=== PATIENT | female | born 1945 | race Caucasian/White ===

== ENCOUNTER → 2016-11-14 | Day surgery (SDC) | payer OTHER, MEDICARE ==
[~2016-11-14] VITALS: Ht 165.1 cm; Wt 56.7 kg
--- NOTE | 2016-11-14 13:44 | Operative Report ---
Operative/Inv Procedure Report Surgery Date: 11/14/16 Name of Procedure: Cataract extraction lens implantation left eye Pre-Operative Diagnosis: Age-related cataract left eye 20/40 vision 20/400 glare vision Post-Operative Diagnosis: Same Estimated Blood Loss: none Surgeon/Neurodiagnostic Technician: CRISTAL PEREZ,VALENTINA Haley Anesthesia: local monitored anesthesi Complications: None Operative/Procedure Note Note: The patient was brought to the operating room standard monitoring equipment was attached the patient was prepped and draped in the usual fashion for intraocular surgery. A lid speculum was placed to retract the lids. The case was begun by making 2 partial-thickness corneal relaxing incisions at 115. A temporal incision with a 2.4 mm keratome. The eye was stabilized with a Noguera ring during this incision. 1 mL of non-preserved lidocaine was introduced into the anterior chamber to provide anesthesia. The anterior chamber was then filled and deepened with viscoelastic. A curvilinear capsulorrhexis was achieved using a 30-gauge needle and is a cystotome and capsulorrhexis was finished using a Utrata forceps. A second or paracentesis incision was made temporally with a 1 mm MVR blade. The lens was then hydrodissected with balanced salt solution and found to be rotatable. The lens was emulsified using phacoemulsification and a modified four-quadrant cracking technique. The residual cortical material was removed using automated irrigation and aspiration and as much of the anterior capsular rim was cleaned as well as possible. The posterior capsule was cleaned first with the automated machine on a low setting and then manually with a Kartik squeegee. The capsular bag was deepened with viscoelastic. The lens a Akreos AO60 20.5 Diopter placed into the bag under direct visualization and rotated so that the haptics were at 12 and 6:00. Viscoelastic was then removed from the eye by flushing it out and then by automated irrigation and aspiration. The eye was pressurized to a normal tone. 1/10 of a cc of vancomycin solution was introduced into the anterior chamber to provide antibiotic prophylaxis. The wounds were sealed by hydrating the stroma adjacent to them and the eye was left at a proper tone after the wounds were checked and found not to be leaking. The lid speculum was removed from the orbit. Antibiotic and steroid drops were placed on the eye and then the eye was shielded. Monitoring equipment was removed from the patient and the patient was removed from the operative suite to the holding area. The patient tolerated the procedure well and will be seen in the office tomorrow.
== END ==
LOC: STS 02:30
DX: H25.9 Unspecified age-related cataract (principal); J44.9 Chronic obstructive pulmonary disease, unspecified; I99.9 Unspecified disorder of circulatory system; Z85.118 Personal history of other malignant neoplasm of bronchus and lung; Z85.841 Personal history of malignant neoplasm of brain; M19.90 Unspecified osteoarthritis, unspecified site
CPT/HCPCS: J2250; V2632

== ENCOUNTER 2017-07-18 09:27 | Inpatient (IN) | payer OTHER, MEDICARE ==
[~2017-07-18] VITALS: Ht 162.6 cm; Wt 63.5 kg
[~2017-07-18 09:27] MED LIST: DIVALPROEX SOD500 M3 PO; HYDROCODON-ACE1 EAC6 PO; KEPPRA750 M1 PO; PREDNISOLONE ACE5 ML OD; SPIRIVA18 MCG INH; SYMBICORT 16010.2 GM INH; TYLENOL EXTRA500 M2 PO; VOLTAREN100 GM TOP; keppra
--- NOTE | 2017-07-18 09:33 | ED MVC/FALL/TRAUMA COMPLAINT ---
History of Present Illness General Chief Complaint: Fall Stated Complaint: BIBA S/P FALL Vital Signs & Intake/Output Vital Signs & Intake/Output Vital Signs Date Time Temp Pulse Resp B/P B/P Pulse O2 O2 Flow FiO2 Mean Ox Delivery Rate 07/18 928 96.8 78 18 110/67 97 Room Air Allergies Coded Allergies: Iodinated Contrast- Oral and IV Dye (RED, ITCHY 12/30/16) oxycodone (PER PT UNKNOWN 12/30/16) Reconcile Medications Acetaminophen (Tylenol Extra Strength) 500 MG TABLET 2 TAB PO PRN PAIN ( Reported) Budesonide/Formoterol Fumarate (Symbicort 160-4.5 Mcg Inhaler) 160 MCG-4.5 MCG/ ACTUATION HFA.AER.AD 2 PUF INH BID copd (Reported) Diclofenac Sodium (Voltaren) (Unknown Strength) GEL..GRAM. (Unknown Dose) TOP AD PRN RT. SHOULDER (Reported) apply to affected area(s) Divalproex Sodium (Divalproex Sodium ER) 500 MG TAB.ER.24H 1 TAB PO BID seizures (Reported) Hydrocodone/Acetaminophen (Hydrocodon-Acetaminoph 7.5-300) 7.5 MG-300 MG TABLET 1 TAB PO BID PRN PAIN (Reported) Levetiracetam (Keppra) 750 MG TABLET 1 TAB PO BID SEIZURES (Reported) Prednisolone Acetate 1 % DROPS.SUSP 1 GTT OD TID RIGHT EYE (Reported) Tiotropium [place] (Spiriva) 18 MCG CAP.W.DEV 1 CAP INH DAILY copd (Reported) Past History Travel History Traveled to [place] past 21 day No Medical History Neurological: seizure Respiratory: asthma, COPD, emphysema Tetanus Vaccine: 10/01/12 Surgical History Surgical History: appendectomy, hysterectomy Psychosocial History What is your primary language Persian Progress Plan of Care: Orders Procedure Date/time Status CT CERV SPINE WO IV CONTRAST 07/[address] PELVIS WO IV CONTRAST 07/[address] HEAD WO IV CONTRAST 07/18 934 Active Current Medications Sig/Joselo Start time Last Medication Dose Stop Time Status Admin Acetaminophen 650 MG ONCE ONE 07/18 944 AC (Tylenol) 07/18 945 Divalproex Sodium 500 MG ONCE ONE 07/18 944 AC (Depakote ER) 07/18 945 Levetiracetam 750 MG ONCE ONE 07/18 944 AC (Keppra) 07/18 0946 Departure Departure Condition: Stable Referrals: Jaya PEREZ,Candi Kumar (PCP/Family) Departure Forms: Customer Survey General Discharge Information
--- NOTE | 2017-07-18 09:36 | ED MVC/FALL/TRAUMA COMPLAINT ---
History of Present Illness General Chief Complaint: Fall Stated Complaint: BIBA S/P FALL Source: patient Exam Limitations: no limitations Vital Signs & Intake/Output Vital Signs & Intake/Output Vital Signs Date Time Temp Pulse Resp B/P B/P Pulse O2 O2 Flow FiO2 Mean Ox Delivery Rate 07/19 0630 98.2 90 18 100/62 93 Room Air 07/18 2149 97.7 87 20 102/52 94 07/18 1909 Room Air 07/18 1702 110/70 07/18 1519 98.0 78 18 96/60 95 07/18 1416 96.2 80 18 114/62 ED Intake and Output 07/19 0000 07/18 1200 Intake Total 800 Output Total Balance 800 Intake, Oral 800 Number 1 Bowel Movements Patient 140 lb 140 lb Weight Weight Reported by Patient Measurement Method Allergies Coded Allergies: Iodinated Contrast- Oral and IV Dye (RED, ITCHY 12/30/16) oxycodone (PER PT UNKNOWN 12/30/16) Triage Nurses Notes Reviewed? yes Onset: Just prior to arrival Duration: hour(s): (1) Timing: recent history Severity: moderate Severity Numbers: 6 Injuries/Fall Location: pelvis, lower extremity Method of Injury: fall Loss of Consciousness: no loss of consciousness Modifying Factors: Worsens With: movement, palpation. HPI: Patient is a 72-year-old female with history of seizure disorder, asthma, chronic left hip pain and arthritis in the right shoulder presenting to the emergency department via EMS with chief complaint of fall prior to arrival. Patient reports that she was walking from the kitchen to the living room with her coffee and had increased left hip pain and her left hip froze and she fell backwards. Denies any presyncopal symptoms. Denies any LOC. Patient denying any head strike but according to EMS she reported that she did hit the back of her head on carpeted. No visual changes. No nausea or vomiting. Denies neck pain or back pain. Denies any pain in the left upper extremity. Patient does admit that she has chronic right shoulder pain secondary to arthritis but denies any new pain. No numbness or tingling. Denies any urinary incontinence or retention. Denies chest pain or palpitations. No shortness of breath. (Adriana LIZARRAGA,Ramona) Reconcile Medications Budesonide/Formoterol Fumarate (Symbicort 160-4.5 Mcg Inhaler) 160 MCG-4.5 MCG/ ACTUATION HFA.AER.AD 2 PUF INH BID copd (Reported) Divalproex Sodium (Divalproex Sodium ER) 250 MG TAB.ER.24H 2 TAB PO BID SEIZURES (Reported) Hydrocodone/Acetaminophen (Hydrocodon-Acetaminoph 7.5-325) 7.5 MG-325 MG TABLET 1 TAB PO BIDP PRN PAIN (Reported) Levetiracetam (Keppra) 750 MG TABLET 1 TAB PO BID SEIZURES (Reported) Tiotropium [place] (Spiriva) 18 MCG CAP.W.DEV 1 CAP INH DAILY copd (Reported) (Amy PEREZ,Kanchan) Past History Travel History Traveled to [place] past 21 day No Medical History Any Pertinent Medical History? see below for history Neurological: seizure Respiratory: asthma, COPD, emphysema Tetanus Vaccine: 10/01/12 Surgical History Surgical History: appendectomy, hysterectomy Psychosocial History What is your primary language Yi Family History Hx Contributory? No (Ramona Smith) Review of Systems Review of Systems Constitutional: Reports: no symptoms. Comments Review of systems: See HPI, All other systems negative. Constitutional, no chills fever or weight loss HEENT: No visual changes no sore throat no congestion Cardiovascular: No chest pain ,palpitation , orthopnea or ankle swelling Skin, no jaundice no rashes Respiratory: No dyspnea cough sputum or hemoptysis GI: No nausea no vomiting : No dysuria No hematuria Muscle skeletal: no back pain, no neck pain, Neurologic: No numbness no increased confusion Psych: No stress anxiety or depression,. Heme/endocrine: No bruising no bleeding no polyuria or polydipsia Immunology: No splenectomy or history of AIDS (Ramona Smith) Physical Exam Physical Exam General Appearance: well developed/nourished, no apparent distress, alert, awake , comfortable Comments: Well-developed well-nourished person in no acute distress HEENT: extraocular motion intact, no nystagmus. Pupils equally round and reactive to light and accommodation. Nose is atraumatic. External auditory canal and Tympanic membranes clear. Pharynx normal. No swelling or edema. Neck: Supple, no lymphadenopathy, normal range of motion without pain or tenderness Back: Nontender, no CVA tenderness. Full range of motion Cardiovascular: Regular rate and rhythms no murmurs rubs or gallops Respiratory: Chest nontender. No respiratory distress.breath sounds clear to auscultation bilaterally Abdomen: Soft, nontender nondistended, no appreciable organomegaly. Normal bowel sounds. No ascites, no rebound or guarding., Nontender to palpation of the cervical, thoracic or lumbar spine. No step-off deformities. No crepitus palpated. Extremity: No edema, no calf tenderness to palpation, normal and equal pulses. Tender to palpation of the left hip and pelvis area. Limited range of motion of left hip secondary to pain. Able to perform straight leg raise bilaterally, some discomfort on the left. No obvious deformity noted to the left hip or left lower extremity. Pedal pulses are 2+ bilaterally. Able to move both feet without difficulty or pain. Neuro: Alert oriented x3, motor sensory normal, cranial nerves II through XII grossly intact. Cerebellar testing is unremarkable. Patellar reflexes are 2+ bilaterally. Skin: No appreciable rash on exposed skin, skin is warm and dry. Psych: Mood and affect is normal, memory and judgment is normal. Core Measures ACS in differential dx? No CVA/TIA Diagnosis No Sepsis Present: No Sepsis Focused Exam Completed? No (Adriana LIZARRAGA,Ramona) Progress Differential Diagnosis: minor head injury, pelvis fx, hip fx, dislocaiton, contusion Plan of Care: Orders Procedure Date/time Status CBC WITHOUT DIFFERENTIAL 07/19 06 Complete BASIC ELECTROLYTES PLUS BUN&CR 07/19 0600 Complete MISSING MEDICATION FORM 07/19 UNK Active Heart Healthy Diet 07/18 L Complete Regular Diet 07/18 D Active THERAPIST ORDERS 07/18 1912 Complete RT: Evaluation 07/18 1909 Active Seizure Precautions 07/18 1521 Active Vital Signs 07/18 1443 Active Teach/Educate 07/18 1443 Active Pain Treatment and Response 07/18 1443 Active Nutritional Intake, Monitor 07/18 1443 Active Isolation 07/18 1443 Active Intake & Output 07/18 1443 Active Patient Care Conference 07/18 1443 Active Activity/Ambulation 07/18 1443 Active Pathway - chart 07/18 1352 Active Patient Data 07/18 1257 Active PT Evaluate & Treat 07/18 1254 Active Pathway - chart 07/18 1254 Active House Staff 07/18 1254 Active Patient Data 07/18 1254 Active Code Status 07/18 1254 Active Patient Data 07/18 1251 Active Admit to inpatient 07/18 1240 Active Vital Signs 07/18 1240 Active Code Status 07/18 1240 Complete PARTIAL THROMBOPLASTIN TIME 07/18 1045 Complete PROTHROMBIN TIME 07/18 1045 Complete COMPREHENSIVE METABOLIC PANEL 07/18 1045 Complete CBC WITHOUT DIFFERENTIAL 07/18 1045 Complete TRC EVALUATION (GEN) 07/18 UNK Complete VTE Mechanical Prophylaxis 07/18 UNK Active Vital Signs 07/18 UNK Complete Intake & Output 07/18 UNK Active Activity/Ambulation 07/18 UNK Active EKG 07/18 UNK Active Current Medications Sig/Joselo Start time Last Medication Dose Stop Time Status Admin Budesonide/ 2 PUF BID 07/19 1000 AC Formoterol Fumarate (Symbicort) Divalproex Sodium 500 MG BID 07/19 1000 AC (Depakote ER) Levetiracetam 750 MG BID 07/18 2200 AC 07/18 (Keppra) 2000 Heparin Sodium 5,000 UNIT Q8 07/18 1400 AC 07/19 (Porcine) 0602 Hydrocodone Bitart/ 1 TAB Q6P PRN 07/18 1400 AC 07/18 Acetaminophen 2000 (Vicodin) Laboratory Tests 07/19/17 0725: Anion Gap 11, Estimated GFR > 60, BUN/Creatinine Ratio 23.3, CBC w Diff NO MAN DIFF REQ, RBC 3.74 L, MCV 97.7, MCH 32.7 H, MCHC 33.4, RDW 14.0, MPV 9.0, Gran % 55.7, Lymphocytes % 25.5, Monocytes % 13.7 H, Eosinophils % 4.7, Basophils % 0.4, Absolute Granulocytes 2.9, Absolute Lymphocytes 1.3, Absolute Monocytes 0.7 H, Absolute Eosinophils 0.2, Absolute Basophils 0 07/18/17 1138: Anion Gap 8, Estimated GFR > 60, BUN/Creatinine Ratio 25.0, Glucose 97, Calcium 9.3, Total Bilirubin 0.6, AST 17, ALT 16, Alkaline Phosphatase 45, Total Protein 5.8 L, Albumin 3.4 L, Globulin 2.4, Albumin/Globulin Ratio 1.4, PT 11.4, INR 1.09, APTT 21 L, CBC w Diff NO MAN DIFF REQ, RBC 3.90 L, MCV 96.6, MCH 32.7 H , MCHC 33.8, RDW 13.6, MPV 9.0, Gran % 77.3 H, Lymphocytes % 12.5 L, Monocytes % 7.1, Eosinophils % 1.3, Basophils % 1.8, Absolute Granulocytes 5.7, Absolute Lymphocytes 0.9 L, Absolute Monocytes 0.5, Absolute Eosinophils 0.1, Absolute Basophils 0.1 Patient has significant pain with any type of movement. Unable to sit patient up appetite due to excessive left pelvic area pain. Patient will be admitted for likely rehabilitation placement. Pain management. Orthopedic and physical therapy consultation. Diagnostic Imaging: Viewed by Me: CT Scan. Discussed w/RAD: CT Scan. Radiology Impression: PATIENT: BRIGID PRIEST PRESENT AGE: 72 PATIENT ACCOUNT NO: [id number] : 44 LOCATION: [facility] ORDERING PHYSICIAN: Ramona LIZARRAGA SERVICE DATE: 07/18/17 EXAM TYPE: CAT - CT PELVIS WO IV CONTRAST EXAMINATION: CT PELVIS WITHOUT CONTRAST CLINICAL INFORMATION: Pain status post fall onto left hip COMPARISON: CT abdomen pelvis 12/30/2016 TECHNIQUE: Helical scanning was performed with submillimeter collimation through the pelvis. Sagittal and coronal multiplanar 2-D reconstructions were obtained. FINDINGS: There is an acute minimally displaced 2 part fracture of the left inferior pubic ramus. No fracture of the visualized proximal left femur or sacrum identified. There is severe degenerative arthrosis of the left hip with essentially a rmun-mr-[id number] appearance and extensive subchondral cystic change of the left femoral head. There is marked left greater than right femoral collar osteophytosis as well as acetabular sclerosis. The appearance is similar to the prior CT scan 12/30/2016. The appearance suggests possible prior avascular necrosis with superimposed advanced degenerative arthrosis. There continues to be mild to moderate degenerative arthrosis of the right hip with joint space narrowing and subchondral cystic change. There are degenerative changes about the bilateral sacroiliac joints. There is lower lumbar degenerative disc disease and severe bilateral facet arthropathy. There is a short segment focal wall thickening of the distal sigmoid colon. There is diffuse colonic diverticulosis. The visualized small bowel is nondilated. IMPRESSION: Acute minimally displaced 2 part fracture of the left inferior pubic ramus. Severe degenerative arthrosis of the left hip but no fracture seen. Mild to moderate degenerative arthrosis of the right hip. There is a short segment of focal wall thickening of the distal sigmoid colon. Although this could be due to underdistention or muscular hypertrophy in the setting of diverticulosis, a neoplasm could have this appearance as well. RECOMMEND CORRELATION WITH COLONOSCOPY. FOLLOW-UP RECOMMENDED; SEE ABOVE DICTATED BY: Tadeo Martinez MD DATE/TIME DICTATED:07/18/171023 SHADE CUTTER:ROBERTO DATE/TIME TRANSCRIBED:07/18/171023 CONFIDENTIAL, DO NOT COPY WITHOUT APPROPRIATE AUTHORIZATION. <Electronically signed in Other Vendor System> SIGNED BY: Tadeo Martinez MD 07/18/17 1039 (Ramona Smith) Departure Departure Time of Disposition: 1216 Disposition: STILL A PATIENT Condition: Stable Clinical Impression Primary Impression: Pelvic fracture Qualifiers: Encounter type: initial encounter Pelvic bone location: unspecified part of pelvis Fracture type: closed Fracture alignment: displaced Qualified Code: S32.9XXA - Fracture of unspecified parts of lumbosacral spine and pelvis, initial encounter for closed fracture Secondary Impressions: Intractable pain Referrals: Jaya PEREZ,Candi Kumar (PCP/Family) Departure Forms: Customer Survey General Discharge Information Admission Note Spoke With: David PEREZ,[place] Documentation of Exam: Documentation of any treatments & extenuating circumstances including Concerns Regarding Discharge (functional status, medication knowledge or non-compliance, living conditions, etc.) that warrant an admission rather than observation: Patient requiring physical therapy consultation, potential rehabilitation placement, pain management, patient should still have scheduled intra-articular joint injection by interventional radiology while she is in the hospital to help reduce pain, discharge at this time is medically harmful as patient lives alone, increased fall risk. (Ramona Smith) PA/ENTRY LEVEL RECEPTIONIST Co-Sign Statement Statement: ED Attending supervision documentation- [X] I saw and evaluated the patient. I have also reviewed all the pertinent lab results and diagnostic results. I agree with the findings and the plan of care as documented in the PA's/ENTRY LEVEL RECEPTIONIST's documentation. [X] I have reviewed the ED Record and agree with the PA's/ENTRY LEVEL RECEPTIONIST's documentation. [] Additions or exceptions (if any) to the PAs/ENTRY LEVEL RECEPTIONIST's note and plan are summarized below: [] PATIENT WITH FALL THIS MORNING, UNABLE TO WALK, NEW PELVIC FRACTURE. WILL NEED ADMISSION TO HOSPITAL, PAIN CONTROL, PHYSICAL THERAPY AND POSSIBLE REHAB. (Amy PEREZ,Kanchan)
[2017-07-18] MEDS ORDERED: DIVALPROEX SOD250 M3 PO (10:18)
[2017-07-18] MEDS ORDERED: HYDROCODON-ACE1 EAC3 PO (10:19)
--- NOTE | 2017-07-18 10:35 | CT SCAN REPORT ---
EXAMINATION: CT HEAD WITHOUT CONTRAST CT CERVICAL SPINE WITHOUT CONTRAST CLINICAL INFORMATION: Fall. Head strike. History of lung carcinoma with presumed intracranial metastasis as reported on a prior mammogram. COMPARISON: Head CT from 10/01/2012 TECHNIQUE: Contiguous axial imaging was performed from the skull base to vertex without intravenous administration of contrast. In addition, helical noncontrast CT imaging was acquired through the cervical spine and source images were reviewed along with axial reconstructions and sagittal and coronal MPRs. DLP: 985 mGy-cm FINDINGS: HEAD: There are remote changes after left pterional craniotomy, stable. Since the prior study there has been progressive development of subjacent cystic encephalomalacia and gliosis within the left perisylvian and subinsular regions. There is no evidence of hemorrhage, edema, extra-axial collection, shift of the normally midline structures, or evolving territorial infarct. There is moderate prominence of the ventricles, sulci, and extra-axial CSF spaces, which appears progressive from 2013. For example the transverse dimension of the anterior third ventricle is currently 1.1 cm, previously 0.7 cm. There also appears to be superimposed ex vacuo dilatation of the temporal horn of the left lateral ventricle. No acute osseous abnormalities are visualized. The imaged paranasal sinuses, nasal cavity, nasopharynx, mastoid air cells and middle ear cavities are clear. No acute soft tissue abnormalities are visualized. There have been bilateral ocular lens extractions. CERVICAL SPINE: There is no evidence of acute fracture or traumatic subluxation. There is a tiny corticated ossific density along the superior aspect of the dens, unchanged. The atlantoaxial and atlantooccipital articulations are maintained. There is multilevel cervical spondylosis with intervertebral disc height loss, endplate spurring and sclerosis. There is multilevel facet hypertrophy. No lytic or sclerotic lesions are visualized concerning for osseous malignancy. No cervical adenopathy is visualized. There are bilateral thyroid nodules with coarse calcifications, the largest in the left lobe measures more than 2.2 cm. The imaged pharyngeal and laryngeal contours appear unremarkable. There are postsurgical changes in the lung apices with spiculated scarring. This is been seen on prior chest x-ray of 09/29/2015. C2-C3: Asymmetric left-sided uncovertebral hypertrophy. Mild facet hypertrophy. There is mild left foraminal narrowing. C3-C4: There is disc osteophyte complex with a partially calcified central protrusion. There appears to be moderate canal stenosis in the midline. There is high-grade bilateral foraminal stenosis. C4-C5: Disc osteophyte complex and facet hypertrophy with mild canal and fairly high-grade bilateral foraminal stenosis. C5-C6: Disc osteophyte complex worse on the left. Mild facet hypertrophy. There is mild canal and right foraminal stenosis and moderate left foraminal stenosis. C6-C7: There appears to be a disc protrusion resulting in mild canal stenosis. The foramina are mildly narrowed. C7-T1: Bilateral facet hypertrophy. No significant canal or foraminal stenosis. IMPRESSION: 1. No acute intracranial abnormality. 2. Remote left pterional craniotomy. Progressive cystic encephalomalacia in the subjacent perisylvian region. There appears to be a history of intracranial metastasis. MRI of the brain without and with contrast would be better for follow-up in this regard. 3. Progressive generalized volume loss within the brain relative to 2013. 4. No evidence of acute cervical spinal fracture or traumatic subluxation. Multilevel cervical spondylosis. There is moderate canal stenosis at C3-C4. If there are any symptoms of myelopathy, correlation with MRI of the cervical spine is recommended. 5. Partially visualized postsurgical changes in the lung apices. 6. Bilateral thyroid nodules with calcifications, the largest in the left lobe measures more than 2.2 cm. Thyroid ultrasound can be considered for additional assessment.
--- NOTE | 2017-07-18 10:39 | CT SCAN REPORT ---
EXAMINATION: CT PELVIS WITHOUT CONTRAST CLINICAL INFORMATION: Pain status post fall onto left hip COMPARISON: CT abdomen pelvis 12/30/2016 TECHNIQUE: Helical scanning was performed with submillimeter collimation through the pelvis. Sagittal and coronal multiplanar 2-D reconstructions were obtained. FINDINGS: There is an acute minimally displaced 2 part fracture of the left inferior pubic ramus. No fracture of the visualized proximal left femur or sacrum identified. There is severe degenerative arthrosis of the left hip with essentially a [id number] appearance and extensive subchondral cystic change of the left femoral head. There is marked left greater than right femoral collar osteophytosis as well as acetabular sclerosis. The appearance is similar to the prior CT scan 12/30/2016. The appearance suggests possible prior avascular necrosis with superimposed advanced degenerative arthrosis. There continues to be mild to moderate degenerative arthrosis of the right hip with joint space narrowing and subchondral cystic change. There are degenerative changes about the bilateral sacroiliac joints. There is lower lumbar degenerative disc disease and severe bilateral facet arthropathy. There is a short segment focal wall thickening of the distal sigmoid colon. There is diffuse colonic diverticulosis. The visualized small bowel is nondilated. IMPRESSION: Acute minimally displaced 2 part fracture of the left inferior pubic ramus. Severe degenerative arthrosis of the left hip but no fracture seen. Mild to moderate degenerative arthrosis of the right hip. There is a short segment of focal wall thickening of the distal sigmoid colon. Although this could be due to underdistention or muscular hypertrophy in the setting of diverticulosis, a neoplasm could have this appearance as well. RECOMMEND CORRELATION WITH COLONOSCOPY. FOLLOW-UP RECOMMENDED; SEE ABOVE
[2017-07-18 11:46] LABS: ABSOLUTE BASOPHIL COUNT 0.1 /CUMM (0.0-0.2); ABSOLUTE EOSINOPHIL COUNT 0.1 /CUMM (0.0-0.7); ABSOLUTE GRANULOCYTE CT 5.7 /CUMM (1.4-6.5); ABSOLUTE LYMPH COUNT 0.9 /CUMM (1.2-3.4); ABSOLUTE MONOCYTE COUNT 0.5 /CUMM (0.10-0.60); BASOPHIL % 1.8 % (0.0-2.0); EOSINOPHIL % 1.3 % (0-5); GRANULOCYTE % 77.3 % (42.2-75.2); HEMATOCRIT 37.7 % (37-47); MEAN CORPUSCULAR HGB 32.7 PG (27.0-31.0); MEAN CORPUSCULAR HGB CONC 33.8 G/DL (33.0-37.0); MEAN CORPUSCULAR VOLUME 96.6 FL (81.0-99.0); PLATELET COUNT 155 /CUMM (130-400); RBC DISTRIBUTION WIDTH 13.6 % (11.5-14.5); WHITE BLOOD CELL COUNT 7.4 /CUMM (4.8-10.8)
[2017-07-18 11:56] LABS: PT 11.4 SEC (9.4-12.5); PTT 21 SEC (25-37)
--- NOTE | 2017-07-18 12:56 | History & Physical ---
Gerardo PEREZ,Kenna 07/18/17 1254: General Information and HPI MD Statement: I have seen and personally examined BRIGID PRIEST and documented this H& P. The patient is a 72 year old F who presented with a patient stated chief complaint of [FALL]. Source of Information: patient, family Exam Limitations: no limitations History of Present Illness: 72 YO F with PMH of stage IV lung cancer with brain metastasis f/b removal by craniotomy c/b seizures (on divalproex, keppra), exsmoker(quit 28ys ago), COPD ( follows Dr. Manriquez), early onset dementia, arthritis, leg edema presented to ER after fall. Patient felt difficulty ambulating yesterday. Today she bought coffee into the living room and while keeping the coffee on the table lost balance and fell down. No chest pain, prodromal symptoms, no head strike. No urinary or bowel incontinence. She immediately pressed her lifevest and EMS arrived, eventually brought her to ER. ROS negative for cough, shortness of breath, chest pain. No nausea, vomiting, diarrhea, abdominal pain. Last week went to orthopedician suggested steroid injection. She is due to undergo injection on sunday. Her cancer is in remission since long time and follows , last MRI of head is last yr. She had a home health aide lately coming on Sun, sun, sunday - 12 to 2pm, helps with cleaning. lunch. meds keppra, divalproex, symbicort, tylenol, vicodine Allergies - percocet, dilantin, CT contrast dye - hives Family history Sister - ovary cancer, mother - breast cancer, aunt - uterine cancer social history smoking - quit 1989 - 2packs for 30 yrs Now socially consumes alcohol no drugs surgeries hysterectomy, appendectomy, thyroidectomy, brain surgery Allergies/Medications Allergies: Coded Allergies: Iodinated Contrast- Oral and IV Dye (RED, ITCHY 12/30/16) oxycodone (PER PT UNKNOWN 12/30/16) Home Med list Budesonide/Formoterol Fumarate (Symbicort 160-4.5 Mcg Inhaler) 160 MCG-4.5 MCG/ ACTUATION HFA.AER.AD 2 PUF INH BID copd (Reported) Divalproex Sodium (Divalproex Sodium ER) 250 MG TAB.ER.24H 2 TAB PO BID SEIZURES (Reported) Hydrocodone/Acetaminophen (Hydrocodon-Acetaminoph 7.5-325) 7.5 MG-325 MG TABLET 1 TAB PO BIDP PRN PAIN (Reported) Levetiracetam (Keppra) 750 MG TABLET 1 TAB PO BID SEIZURES (Reported) Tiotropium [place] (Spiriva) 18 MCG CAP.W.DEV 1 CAP INH DAILY copd (Reported) Compliance With Home Meds: GOOD Past History Travel History Traveled to [place] past 21 day No Medical History Any Pertinent Medical History? 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 Home Who Do You Live With? self Services at Home: Home Health Aide Primary Language: Lithuanian Smoking Status: Former Smoker ETOH Use: occasional use Illicit Drug Use: denies illicit drug use Living Will? yes Functional Ability ADLs Independent: dressing, eating, toileting, bathing. Ambulation: cane, walker IADLs Needs Assist: shopping, housework, finances, food prep, telephone, transportation, medication admin. Review of Systems Review of Systems Constitutional: Reports: see HPI. EENTM: Reports: no symptoms. Exam & Diagnostic Data Last 24 Hrs of Vital Signs/I&O Vital Signs Date Time Temp Pulse Resp B/P B/P Pulse O2 O2 Flow FiO2 Mean Ox Delivery Rate 07/18 0929 96.8 78 18 110/67 97 Room Air Intake & Output 07/18 1600 07/18 0800 07/18 0000 Intake Total Output Total Balance Patient 63.503 kg Weight Weight Reported by Patient Measurement Method Physical Exam General Appearance Alert, Oriented X3, Cooperative Skin No Rashes, No Breakdown HEENT Atraumatic, PERRLA, EOMI Neck Supple Cardiovascular Normal S1, Normal S2 Lungs Clear to Auscultation, Normal Air Movement Abdomen Normal Bowel Sounds, Soft, No Tenderness Neurological Normal Speech, Normal Tone, Sensation Intact Extremities No Clubbing, No Cyanosis, 2-3 + pitting edema with prominent telangiectasia Vascular Normal Pulses Rectal tone normal Body Front and Back (Adult) 1) Prominent telangiectasia 2) Osteoarthritis 3) fracture of pubic ramus Last 24 Hrs of Labs/Morris: Laboratory Tests 07/18/17 1138: Anion Gap 8, Estimated GFR > 60, BUN/Creatinine Ratio 25.0, Glucose 97, Calcium 9.3, Total Bilirubin 0.6, AST 17, ALT 16, Alkaline Phosphatase 45, Total Protein 5.8 L, Albumin 3.4 L, Globulin 2.4, Albumin/Globulin Ratio 1.4, PT 11.4, INR 1.09, APTT 21 L, CBC w Diff NO MAN DIFF REQ, RBC 3.90 L, MCV 96.6, MCH 32.7 H , MCHC 33.8, RDW 13.6, MPV 9.0, Gran % 77.3 H, Lymphocytes % 12.5 L, Monocytes % 7.1, Eosinophils % 1.3, Basophils % 1.8, Absolute Granulocytes 5.7, Absolute Lymphocytes 0.9 L, Absolute Monocytes 0.5, Absolute Eosinophils 0.1, Absolute Basophils 0.1 Assessment/Plan Assessment: Patient is a 72 YO F with stage IV lung cancer with brain metastasis f/b removal by craniotomy c/b seizures (on divalproex, keppra), exsmoker(quit 28ys ago), COPD (follows Dr. Manriquez), early onset dementia, arthritis, leg edema was BIBA after a pure mechanical fall due to imbalance. she denies any head strike with complete recollection of events. VS are stable, PE significant for SLR mildly positive on left side and labs are unremarkable. Imaging is significant for minimally displaced 2 part fracture of left inferior pubic ramus and severe degenerative arthrosis of left hip without any fracture. Coloic thickening present. While trying to ambulate she had significant pain in the left hip region. She is scheduled to get a steroid injection to her left hip this sunday. Plan Left pubic ramus fracture s/p mechanical fall Conservative management with pain management and physical therapy. She feels very uncomfortable to walk due to osteoarthritis would benefit with steroid injection. Formal consult with . Merits rehab placement. History of sever left hip arthritis Local steroid injection. Tylenol Apparently she is scheduled for steroid injection by IR. ?? Needs precontrast treatment per IR. we will confirm with . Seizures s/p craniotomy for metastasic leison Continue Keppra 750mg BID, Divalproex 500mg BID History of COPD Currently stable. TRC, continue inhalers. DVT prophylaxis SC heparin Code status full code As Ranked By This Provider Problem List: 1. Pelvic fracture Qualifiers Encounter type: initial encounter Pelvic bone location: unspecified part of pelvis Fracture type: closed Fracture alignment: displaced Qualified Code: S32.9XXA - Fracture of unspecified parts of lumbosacral spine and pelvis, initial encounter for closed fracture 2. Intractable pain Core Measures/Misc (02/04) Acute Coronary Syndrome ACS Diagnosis: No Congestive Heart Failure Congestive Heart Failure Diagnosis No Cerebrovascular Accident CVA/TIA Diagnosis: No VTE (View Protocol) VTE Risk Factors Acute Medical Illness No Mechanical VTE Prophylaxis d/t N/A MechProphylax Ordered No VTE Pharm Prophylaxis d/t NA PharmProphylax ordered Sepsis (View protocol) Sepsis Present: No Resident Review Statement Resident Statement: examined this patient, discussed with international banker, agreed with international banker, discussed with family, reviewed EMR data (avail), discussed with nursing , discussed with case mgmt, reviewed images, amended to note Other Findings: ABOVE Jhonny PEREZ,[facility] 07/18/17 1505: Attending MD Review Statement Attending Statement Attending MD Statement: examined this patient, discuss w/resident/PA/INFORMATION COORDINATOR, agreed w/resident/PA/INFORMATION COORDINATOR, reviewed EMR data (avail), discussed with nursing, discussed with case mgmt, reviewed images, amended to note Attending Assessment/Plan: 72 y/o F with pmh sig for stage IV lung cancer with brain metastasis f/b removal by craniotomy c/b seizures (on divalproex, keppra), exsmoker, COPD , early onset dementia, arthritis, leg edema presented with a fall. It sounds like a mechanical fall. Patient was coming to her living room with a cup of coffee in one hand and cane in the other hand and she suddenly lost her balance and fell. She fell on her back. She could not get up and all 911. She was told that she should not try to movements should stay where she was. She still denies striking her head. She currently denies any pain at present. She follows with Alec Komninakas, MD from orthopedic because off severe arthritis in her hip and was scheduled to have steroid injection done in 2 days. Vital Signs Date Time Temp Pulse Resp B/P B/P Pulse O2 O2 Flow FiO2 Mean Ox Delivery Rate 07/18 1519 98.0 78 18 96/60 95 07/18 1416 96.2 80 18 114/62 07/18 0929 96.8 78 18 110/67 97 Room Air on exam; aox3, nad. cv; s1,s2, rrr resp; clear abd; soft, nt, bs+ ext; trace edema. Laboratory Tests 07/18 1138 Chemistry Sodium (137 - 145 mmol/L) 140 Potassium (3.5 - 5.1 mmol/L) 4.4 Chloride (98 - 107 mmol/L) 106 Carbon Dioxide (22 - 30 mmol/L) 26 Anion Gap (5 - 16) 8 BUN (7 - 17 mg/dL) 15 Creatinine (0.5 - 1.0 mg/dL) 0.6 Estimated GFR (>60 ml/min) > 60 BUN/Creatinine Ratio (7 - 25 %) 25.0 Glucose (65 - 99 mg/dL) 97 Calcium (8.4 - 10.2 mg/dL) 9.3 Total Bilirubin (0.2 - 1.3 mg/dL) 0.6 AST (14 - 36 U/L) 17 ALT (9 - 52 U/L) 16 Alkaline Phosphatase (<127 U/L) 45 Total Protein (6.3 - 8.2 g/dL) 5.8 L Albumin (3.5 - 5.0 g/dL) 3.4 L Globulin (1.9 - 4.2 gm/dL) 2.4 Albumin/Globulin Ratio (1.1 - 2.2 %) 1.4 Coagulation PT (9.4 - 12.5 SEC) 11.4 INR (0.90 - 1.19) 1.09 APTT (25 - 37 SEC) 21 L Hematology CBC w Diff NO MAN DIFF REQ WBC (4.8 - 10.8 /CUMM) 7.4 RBC (4.20 - 5.40 /CUMM) 3.90 L Hgb (12.0 - 16.0 G/DL) 12.7 Hct (37 - 47 %) 37.7 MCV (81.0 - 99.0 FL) 96.6 MCH (27.0 - 31.0 PG) 32.7 H MCHC (33.0 - 37.0 G/DL) 33.8 RDW (11.5 - 14.5 %) 13.6 Plt Count (130 - 400 /CUMM) 155 MPV (7.4 - 10.4 FL) 9.0 Gran % (42.2 - 75.2 %) 77.3 H Lymphocytes % (20.5 - 51.1 %) 12.5 L Monocytes % (1.7 - 9.3 %) 7.1 Eosinophils % (0 - 5 %) 1.3 Basophils % (0.0 - 2.0 %) 1.8 Absolute Granulocytes (1.4 - 6.5 /CUMM) 5.7 Absolute Lymphocytes (1.2 - 3.4 /CUMM) 0.9 L Absolute Monocytes (0.10 - 0.60 /CUMM) 0.5 Absolute Eosinophils (0.0 - 0.7 /CUMM) 0.1 Absolute Basophils (0.0 - 0.2 /CUMM) 0.1 All imaging reviewed. A/P; 72 y/o F with pmh sig for stage IV lung cancer with brain metastasis f/b removal by craniotomy c/b seizures (on divalproex, keppra), exsmoker, COPD , early onset dementia, arthritis, leg edema admitted with a fall and found to have a pubic fracture. Patient admitted to medicine. Will consult orthopedic Alec Bailey MD. Pain management will be done with analgesics. Patient will be seen by physical therapy. Should be continued on her antiseizure regimen at home medications. Please check a rectal exam to make sure that she has intact rectal tone. DVT prophylaxis: Heparin subcutaneous. Patient is a full code.
[2017-07-18 15:19] VITALS: BP 96/60
[2017-07-18 17:02] VITALS: BP 110/70
[2017-07-18 21:49] VITALS: BP 102/52
[2017-07-19 06:30] VITALS: BP 100/62
[2017-07-19 08:53] LABS: ABSOLUTE BASOPHIL COUNT 0 /CUMM (0.0-0.2); ABSOLUTE EOSINOPHIL COUNT 0.2 /CUMM (0.0-0.7); ABSOLUTE GRANULOCYTE CT 2.9 /CUMM (1.4-6.5); ABSOLUTE LYMPH COUNT 1.3 /CUMM (1.2-3.4); ABSOLUTE MONOCYTE COUNT 0.7 /CUMM (0.10-0.60); BASOPHIL % 0.4 % (0.0-2.0); EOSINOPHIL % 4.7 % (0-5); GRANULOCYTE % 55.7 % (42.2-75.2); HEMATOCRIT 36.6 % (37-47); MEAN CORPUSCULAR HGB 32.7 PG (27.0-31.0); MEAN CORPUSCULAR HGB CONC 33.4 G/DL (33.0-37.0); MEAN CORPUSCULAR VOLUME 97.7 FL (81.0-99.0); PLATELET COUNT 136 /CUMM (130-400); RED BLOOD CELL CT 3.74 /CUMM (4.20-5.40); WHITE BLOOD CELL COUNT 5.1 /CUMM (4.8-10.8)
--- NOTE | 2017-07-19 09:37 | PN- Housestaff ---
Subjective Follow-up For: Left pubic ramus fracture Subjective: Feels well overall. Pain on movement. Current pain score 0/10. Vicodin seems to be working for pain. No chest pain, shortness of breath, pain at the site of fracture etc. Review of Systems Constitutional: Reports: see HPI. Objective Last 24 Hrs of Vital Signs/I&O Vital Signs Date Time Temp Pulse Resp B/P B/P Pulse O2 O2 Flow FiO2 Mean Ox Delivery Rate 07/19 0630 98.2 90 18 100/62 93 Room Air 07/18 2149 97.7 87 20 102/52 94 07/18 1909 Room Air 07/18 1702 110/70 07/18 1519 98.0 78 18 96/60 95 07/18 1416 96.2 80 18 114/62 Intake & Output 07/19 1600 07/19 0800 07/19 0000 Intake Total 800 Output Total 200 Balance -200 800 Intake, Oral 800 Number 0 1 Bowel Movements Output, Urine 200 Physical Exam General Appearance: Alert, Oriented X3, Cooperative Cardiovascular: Regular Rate, Normal S1, Normal S2 Lungs: Clear to Auscultation, Normal Air Movement Abdomen: Normal Bowel Sounds, Soft Extremities: No Clubbing, No Cyanosis, No Edema Current Medications: Current Medications Sig/Joselo Start time Last Medication Dose Route Stop Time Status Admin Budesonide/ 2 PUF BID 07/19 1000 AC 07/19 Formoterol Fumarate INH 0959 Divalproex Sodium 500 MG BID 07/19 1000 AC 07/19 PO 0958 Divalproex Sodium 500 MG BID 07/18 2200 DC 07/18 PO 2000 Enoxaparin Sodium 40 MG DAILY 07/18 1332 DC SC Heparin Sodium 0 .STK-MED ONE 07/18 1421 DC (Porcine) .ROUTE Heparin Sodium 5,000 UNIT Q8 07/18 1400 AC 07/19 (Porcine) SC 0602 Hydrocodone Bitart/ 1 TAB Q6P PRN 07/18 1400 AC 07/18 Acetaminophen PO 2000 Levetiracetam 750 MG BID 07/180 AC 07/19 PO 0958 Last 24 Hrs of Lab/Morris Results Last 24 Hrs of Labs/Mics: Laboratory Tests 07/19/17 0725: Anion Gap 11, Estimated GFR > 60, BUN/Creatinine Ratio 23.3, CBC w Diff NO MAN DIFF REQ, RBC 3.74 L, MCV 97.7, MCH 32.7 H, MCHC 33.4, RDW 14.0, MPV 9.0, Gran % 55.7, Lymphocytes % 25.5, Monocytes % 13.7 H, Eosinophils % 4.7, Basophils % 0.4, Absolute Granulocytes 2.9, Absolute Lymphocytes 1.3, Absolute Monocytes 0.7 H, Absolute Eosinophils 0.2, Absolute Basophils 0 Assessment/Plan Assessment: 72-year-old woman with stage IV lung cancer with metastasis to brain, status post craniotomy complicated by postop seizures, long-standing former smoker admitted [facility] 07[facility]18[facility]2017 after sustaining a mechanical fall resulting in left pubic ramus fracture. 1. Left pubic ramus fracture. Pain well controlled. Contacted orthopedic service. Patient was scheduled to receive IV steroid injection for her left hip osteoarthritis on 07/20/2017. Uncertain if plan still remains the same, given the new fracture. Requested orthopedic opinion regarding weightbearing status, needs to be assessed prior to working with physical therapy. Await their recommendations. 2. Seizures. Continue current seizure medications. Full code. Pharmacological DVT prophylaxis. Regular diet. Problem List: 1. Pelvic fracture Pain Ratin Pain Location: Left hip Pain Goal: Remain pain free Pain Plan: Vicodin Tomorrow's Labs & Rationales: Not needed
--- NOTE | 2017-07-19 11:37 | PN- Att Addend ---
Attending Addendum Attending Brief Note Patient seen and examined, feels okay. Denies any pain if she is not moving but with any kind of movement she starts developing pain. Vital Signs Date Time Temp Pulse Resp B/P B/P Pulse O2 O2 Flow FiO2 Mean Ox Delivery Rate 07/19 0630 98.2 90 18 100/62 93 Room Air 07/18 2149 97.7 87 20 102/52 94 07/18 1909 Room Air 07/18 1702 110/70 07/18 1519 98.0 78 18 96/60 95 07/18 1416 96.2 80 18 114/62 on exam; aox3, nad. cv; s1,s2, rrr resp; clear abd; soft, nt, bs+ ext; no edema. Laboratory Tests 07/19 07/18 0725 1138 Chemistry Sodium (137 - 145 mmol/L) 143 140 Potassium (3.5 - 5.1 mmol/L) 4.0 4.4 Chloride (98 - 107 mmol/L) 107 106 Carbon Dioxide (22 - 30 mmol/L) 25 26 Anion Gap (5 - 16) 11 8 BUN (7 - 17 mg/dL) 14 15 Creatinine (0.5 - 1.0 mg/dL) 0.6 0.6 Estimated GFR (>60 ml/min) > 60 > 60 BUN/Creatinine Ratio (7 - 25 %) 23.3 25.0 Glucose (65 - 99 mg/dL) 97 Calcium (8.4 - 10.2 mg/dL) 9.3 Total Bilirubin (0.2 - 1.3 mg/dL) 0.6 AST (14 - 36 U/L) 17 ALT (9 - 52 U/L) 16 Alkaline Phosphatase (<127 U/L) 45 Total Protein (6.3 - 8.2 g/dL) 5.8 L Albumin (3.5 - 5.0 g/dL) 3.4 L Globulin (1.9 - 4.2 gm/dL) 2.4 Albumin/Globulin Ratio (1.1 - 2.2 %) 1.4 Coagulation PT (9.4 - 12.5 SEC) 11.4 INR (0.90 - 1.19) 1.09 APTT (25 - 37 SEC) 21 L Hematology CBC w Diff NO MAN DIFF REQ NO MAN DIFF REQ WBC (4.8 - 10.8 /CUMM) 5.1 7.4 RBC (4.20 - 5.40 /CUMM) 3.74 L 3.90 L Hgb (12.0 - 16.0 G/DL) 12.2 12.7 Hct (37 - 47 %) 36.6 L 37.7 MCV (81.0 - 99.0 FL) 97.7 96.6 MCH (27.0 - 31.0 PG) 32.7 H 32.7 H MCHC (33.0 - 37.0 G/DL) 33.4 33.8 RDW (11.5 - 14.5 %) 14.0 13.6 Plt Count (130 - 400 /CUMM) 136 155 MPV (7.4 - 10.4 FL) 9.0 9.0 Gran % (42.2 - 75.2 %) 55.7 77.3 H Lymphocytes % (20.5 - 51.1 %) 25.5 12.5 L Monocytes % (1.7 - 9.3 %) 13.7 H 7.1 Eosinophils % (0 - 5 %) 4.7 1.3 Basophils % (0.0 - 2.0 %) 0.4 1.8 Absolute Granulocytes (1.4 - 6.5 /CUMM) 2.9 5.7 Absolute Lymphocytes (1.2 - 3.4 /CUMM) 1.3 0.9 L Absolute Monocytes (0.10 - 0.60 /CUMM) 0.7 H 0.5 Absolute Eosinophils (0.0 - 0.7 /CUMM) 0.2 0.1 Absolute Basophils (0.0 - 0.2 /CUMM) 0 0.1 A/P; 72 y/o F with pmh sig for stage IV lung cancer with brain metastasis f/b removal by craniotomy c/b seizures (on divalproex, keppra), exsmoker, COPD , early onset dementia, arthritis, leg edema admitted with a fall and found to have a pubic fracture. Orthopedic consult is awaited. Patient was supposed to have a left hip injection done by IR. Please discuss with IR as well as Alec Bailey MD about the process. Pain management is adequate. Continue the rest of meds. DVT px; Hep sq. Patient will be seen by physical therapy and likely would need rehabilitation.
[2017-07-19 13:57] VITALS: BP 110/70
[2017-07-19 22:32] VITALS: BP 90/58
[2017-07-20 06:20] VITALS: BP 98/60
--- NOTE | 2017-07-20 10:27 | PN- Housestaff ---
Wilmer Osei 07/20/17 1025: Subjective Follow-up For: Left pubic ramus fracture Subjective: Feels well overall. Pain on movement. Current pain score 0/10. Vicodin seems to be working for pain. No chest pain, shortness of breath, pain at the site of fracture etc. Scheduled for steroid injection this afternoon. Tolerating steroid premedication well. Review of Systems Constitutional: Reports: see HPI. Objective Last 24 Hrs of Vital Signs/I&O Vital Signs Date Time Temp Pulse Resp B/P B/P Pulse O2 O2 Flow FiO2 Mean Ox Delivery Rate 07/20 06 98.5 63 18 98/60 94 Room Air 07/19 2232 98.2 78 20 90/58 96 Room Air 07/19 1548 Room Air 07/19 1357 98.3 84 20 110/70 92 Room Air 07/19 1216 Room Air Intake & Output 07/20 1600 07/20 0800 07/20 0000 Intake Total 250 Output Total 425 Balance -425 250 Intake, IV 10 Intake, Oral 240 Output, Urine 425 Physical Exam General Appearance: Alert, Oriented X3, Cooperative Cardiovascular: Regular Rate, Normal S1, Normal S2 Lungs: Clear to Auscultation, Normal Air Movement Abdomen: Normal Bowel Sounds, Soft, No Tenderness Extremities: No Clubbing, No Cyanosis Current Medications: Current Medications Sig/Joselo Start time Last Medication Dose Route Stop Time Status Admin Budesonide/ 2 PUF BID 07/19 1000 AC 07/20 Formoterol Fumarate INH 0955 Diphenhydramine HCl 50 MG ONCE ONE 07/20 1200 AC PO 07/20 1201 Divalproex Sodium 500 MG BID 07/19 1000 AC 07/20 PO 0954 Heparin Sodium 5,000 UNIT Q8 07/18 1400 AC 07/20 (Porcine) SC 0657 Hydrocodone Bitart/ 1 TAB Q6P PRN 07/18 1400 AC 07/20 Acetaminophen PO 0130 Levetiracetam 750 MG BID 07/18 2200 AC 07/20 PO 0954 Patient Medication 1 ED ONE ONE 07/19 1600 DC Teaching ED 07/19 1601 Prednisone 50 MG ONE TIME ONE 07/20 1200 AC PO 07/20 1201 Prednisone 50 MG ONCE ONE 07/20 0600 DC 07/20 PO 07/20 0601 0657 Prednisone 50 MG ONE TIME ONE 07/20 0000 DC 07/20 PO 07/20 0001 0006 Assessment/Plan Assessment: 72-year-old woman with stage IV lung cancer with metastasis to brain, status post craniotomy complicated by postop seizures, long-standing former smoker admitted to [facility] on 07/18/2017 after sustaining a mechanical fall resulting in left pubic ramus fracture. 1. Left pubic ramus fracture. Pain well controlled. Work with physical therapy. Weightbearing as tolerated. Schedule for IV steroid injection this afternoon. Premedication and related. Await their recommendations. 2. Seizures. Continue current seizure medications. Disposition. Short-term rehabilitation. Full code. Pharmacological DVT prophylaxis. Regular diet. Problem List: 1. Pelvic fracture Pain Ratin Pain Location: Left hip Pain Goal: Remain pain free Pain Plan: When necessary Vicodin Tomorrow's Labs & Rationales: Not needed. Greta Jennigns 07/20/17 1405: Attending MD Review Statement Attending Statement Attending MD Statement: examined this patient, discuss w/resident/PA/CATERING SOUS CHEF, agreed w/resident/PA/CATERING SOUS CHEF, reviewed EMR data (avail), discussed with nursing, discussed with case mgmt Attending Assessment/Plan: Daughter works at [employer] and pt would like to go to rehab in [facility]. D/w case management . Pt has bed at [facility] for tomorrow. Pt made aware of that.
--- NOTE | 2017-07-20 14:12 | Patient Discharge Instructions ---
Discharge Instructions General Discharge Information You were seen/treated for: Left Pubic Ramus Fracture Watch for these problems: Worsening pain Special Instructions: Please follow up with PCP and Ortho as an outpatient in 1 - 2 weeks. Weight bearing as tolerated. Diet Continue normal diet: Yes Activity Full Activity/No Limits: Yes Acute Coronary Syndrome Inclusion Criteria At DC or during hospital stay patient has or had the following: ACS DIAGNOSIS No Discharge Core Measures Meds if any: Prescribed or Continued at Discharge Meds if any: NOT Prescribed or Continued at Discharge Congestive Heart Failure Inclusion Criteria At DC or during hospital stay patient has or had the following: CHF DIAGNOSIS No Discharge Core Measures Meds if any: Prescribed or Continued at Discharge Meds if any: NOT Prescribed or Continued at Discharge Cerebrovascular accident Inclusion Criteria At DC or during hospital stay patient has or had the following: CVA/TIA Diagnosis No Discharge Core Measures Meds if any: Prescribed or Continued at Discharge Meds if any: NOT Prescribed or Continued at Discharge Venous thromboembolism Inclusion Criteria VTE Diagnosis No VTE Type NONE VTE Confirmed by (Test) NONE Discharge Core Measures - Per Current guidelines, there needs to be overlap - treatment for the first 5 days of Warfarin therapy. - If discharged on Warfarin prior to 5 days of - overlap therapy, the patient will need to be - assessed for post discharge needs including - *Post discharge parental anticoagulation - *Warfarin and/or parental anticoagulation education - *Follow up date to check INR post discharge At least 5 days overlap therapy as Inpatient No Meds if any: Prescribed or Continued at Discharge Note: Overlap Therapy is Warfarin and Anticoagulant Meds if any: NOT Prescribed or Continued at Discharge
--- NOTE | 2017-07-20 14:14 | Discharge Summary ---
Visit Information Visit Dates Admission Date: 07/18/17 Discharge Date: 07/21/2017 Hospital Course Course Attending Physician: Marija Barry MD Primary Care Physician: Candi Lake MD Hospital Course: 69-year-old woman with past medical history significant for stage IV lung cancer with brain metastasis requiring removal via craniotomy complicated by seizures, previous history of COPD, early onset dementia, arthritis presented to [facility] ED on 07/10/2017 after sustaining a mechanical fall resulting in a pubic ramus fracture. Subsequently the patient was admitted to medicine service and orthopedic surgery consulted. The results from the pelvic CT CAT scan are as follows: Acute minimally displaced 2 part fracture of the left inferior pubic ramus. Severe degenerative arthrosis of the left hip but no fracture seen. Mild to moderate degenerative arthrosis of the right hip. Patient's pain was optimally controlled and she worked with physical therapy, with instructions to weight-bear as tolerated. Patient showed good progress and is stable to be discharged on 07/21/2017. Patient will follow up with orthopedic as an outpatient. To be noted, patient received her IV steroid injection in the left hip as scheduled outpatient, when she was in the hospital. Note: Pelvic CT showed focal wall thickening of the distal sigmoid colon. The report reads as follows: There is a short segment of focal wall thickening of the distal sigmoid colon. Although this could be due to underdistention or muscular hypertrophy in the setting of diverticulosis, a neoplasm could have this appearance as well. RECOMMEND CORRELATION WITH COLONOSCOPY. For the aforementioned, patient should follow-up with primary care physician and a gastroenterology physician as an outpatient. Patient will be provided with referrals to gastroenterology. Allergies: Coded Allergies: Iodinated Contrast- Oral and IV Dye (RED, ITCHY 12/30/16) oxycodone (PER PT UNKNOWN 12/30/16) Disposition Summary Disposition Principal Diagnosis: Left pubic ramus fracture Additional Diagnosis: Osteoarthritis Osteoporosis Discharge Disposition: SNF Discharge Instructions General Discharge Information Code Status: Full Code Patient's Diet: Regular diet. Patient's Activity: Weightbearing as tolerated, discharge to short-term rehabilitation, return to baseline. Follow-Up Instructions/Appts: Please follow-up with primary care physician as an outpatient. Please follow-up with network support specialist for CT findings as an outpatient. Please follow-up with orthopedic surgeon as an outpatient. Medications at Discharge Discharge Medications: Continue taking these medications: Budesonide/Formoterol Fumarate (Symbicort 160-4.5 Mcg Inhaler) 160 MCG-4.5 MCG/ ACTUATION HFA.AER.AD 2 Puff Inhale through mouth TWICE DAILY Tiotropium [place] (Spiriva) 18 MCG CAP.W.DEV 1 Capsule Inhale through mouth DAILY Levetiracetam (Keppra) 750 MG TABLET 1 Tablet ORAL TWICE DAILY Divalproex Sodium (Divalproex Sodium ER) 250 MG TAB.ER.24H 2 Tablet ORAL TWICE DAILY Qty = 360 Hydrocodone/Acetaminophen (Hydrocodon-Acetaminoph 7.5-325) 7.5 MG-325 MG TABLET 1 Tablet ORAL 2 x Daily as needed as needed for PAIN Qty = 60 Copies To: Jhonny PEREZ,Marija; Jaya PEREZ,Candi Kumar; Leo PEREZ,Alec Attending MD Review Statement Documenting Attending: Jhonny PEREZ,Marija
[2017-07-20 15:02] VITALS: BP 98/60
--- NOTE | 2017-07-20 17:02 | INTERVENTIONAL RADIOLOGY RPT ---
EXAMINATION: Fluoroscopic guided steroid injection of the left hip. CLINICAL INFORMATION: 72-year-old female with osteoarthritis and pain of the left hip. COMPARISON: Left hip steroid injection 01/29/2017 TECHNIQUE: Informed consent was obtained from the patient prior to the procedure. During this process, the procedure and potential alternatives were explained along with the intended outcome and benefits. The risks of the procedure including the possibility of an unsuccessful procedure, as well as the risk of not doing the procedure was discussed. The patient was given the opportunity to ask questions regarding the procedure and appeared competent to make decisions. The signed informed consent form was placed in the medical record. A time out procedure was performed. Following informed consent the patient was placed supine on fluoroscopic table. The left hip region was prepped and draped in usual sterile fashion. 1% lidocaine was infiltrated into the skin and subcutaneous tissues. A 20-gauge spinal needle was introduced into the left hip joint under fluoroscopic guidance. 1 mL of Optiray contrast was injected into the joint space to confirm positioning within the joint. At this time a mixture of 80 mg Depo-Medrol, 3cc Bupivacaine and 3cc sterile saline was introduced into the joint space. Maximum sterile technique was utilized throughout. The needle was removed. Good hemostasis was achieved. A sterile dressing was placed. The patient tolerated the procedure well and was discharged from the room in good condition and monitored with instructions. No complications. FLUOROSCOPY TIME: 0.2 minutes NUMBER OF IMAGES: 3 IMPRESSION: Successful fluoroscopic guided steroid injection of the left hip.
[2017-07-20 22:48] VITALS: BP 100/60
[2017-07-21 06:19] VITALS: BP 102/64
--- NOTE | 2017-07-21 07:34 | PN- Housestaff ---
See Addendum Subjective Follow-up For: Left pubic ramus fracture Subjective: Patient seen and examined at bedside. She was resting comfortably. She had no acute events overnight. She reports that her pain continues to be well controlled at rest. However when ambulating yesterday she ports 8/10 pain. She went for fluoroscopic-guided steroid injection of the left hip yesterday and tolerated the procedure well. She is looking forwart to prospect of being discharged today. She denies any chest pain, shortness of breath, nausea, vomiting, fever, chills. Review of Systems Constitutional: Reports: no symptoms. Cardiovascular: Denies: chest pain, palpitations. Respiratory: Denies: cough, short of breath. Gastrointestinal: Reports: no symptoms. Genitourinary: Reports: no symptoms. Musculoskeletal: Reports: see HPI, joint pain (L hip with ambulation). Objective Last 24 Hrs of Vital Signs/I&O Vital Signs Date Time Temp Pulse Resp B/P B/P Pulse O2 O2 Flow FiO2 Mean Ox Delivery Rate 07/21 0619 97.7 72 20 102/64 95 Room Air 07/21 0000 94 Room Air 07/20 2248 97.5 83 19 100/60 94 Room Air 07/20 1502 97.2 76 18 98/60 97 Intake & Output 07/21 0800 07/21 0000 07/20 1600 Intake Total 120 225 Output Total 200 300 Balance -80 -75 Intake, Oral 120 225 Number 1 Bowel Movements Output, Urine 200 300 Physical Exam General Appearance: Alert, Oriented X3, Cooperative, No Acute Distress Skin Temp/Moisture Exam: Warm/Dry Cardiovascular: Regular Rate, Normal S1, Normal S2 Lungs: Clear to Auscultation, Normal Air Movement Abdomen: Normal Bowel Sounds, Soft, No Tenderness Neurological: Normal Speech, Normal Tone, Sensation Intact Extremities: band-aid over site of hip injection, no signs of bleeding or saturation, L anterior hip mildly TTP Current Medications: Current Medications Sig/Joselo Start time Last Medication Dose Route Stop Time Status Admin Budesonide/ 2 PUF BID 07/19 1000 AC 07/20 Formoterol Fumarate INH 2044 Bupivacaine HCl 0 .STK-MED ONE 07/20 1244 DC .ROUTE Diphenhydramine HCl 50 MG ONCE ONE 07/20 1200 DC 07/20 PO 07/20 1201 1154 Divalproex Sodium 500 MG BID 07/19 1000 AC 07/20 PO 204 Heparin Sodium 5,000 UNIT Q8 07/18 1400 AC 07/20 (Porcine) SC 7 Hydrocodone Bitart/ 1 TAB Q6P PRN 07/18 1400 AC 07/20 Acetaminophen PO 204 Hydromorphone HCl 0.2 MG ONCE ONE 07/21 0030 DC 07/21 IV 07/21 0031 0100 Ioversol 0 .STK-MED ONE 07/20 1244 DC IV Levetiracetam 750 MG BID 07/18 2200 AC 07/20 PO 2043 Lidocaine 0 .STK-MED ONE 07/20 1244 DC .ROUTE Melatonin 5 MG AT BEDTIME 07/20 2200 AC 07/20 PO 204 Melatonin 3 MG ONCE ONE 07/20 1115 DC 07/20 PO 07/20 1116 1222 Methylprednisolone 0 .STK-MED ONE 07/20 1244 DC .ROUTE Prednisone 50 MG ONE TIME ONE 07/20 1200 DC 07/20 PO 07/20 1201 1154 Sodium Chloride 0 .STK-MED ONE 07/20 1244 DC IV Assessment/Plan Assessment: Patient is a 71-year-old female with a PMH significant for stage IV lung cancer with metastases to the brain status post craniotomy with postop seizures, significant smoking history, who presented to [facility] status post mechanical fall to have a left pubic ramus fracture. Fracture is not operable. #Left pubic ramus fracture Status post steroid injection yesterday, tolerated procedure well. Pain currently well controlled. Currently weightbearing as tolerated. -Plan to discharge to [facility] today #Chronic medical problems including seizures -Continue home medications Diet: Regular diet DVT prophylaxis: Subcutaneous heparin, ALPS CODE STATUS: Full code Problem List: 1. Pelvic fracture Pain Ratin Pain Location: pain well controlled at rest, 8/10 of L hip with ambulation Pain Goal: Pain 4 or less Pain Plan: pain pathway Tomorrow's Labs & Rationales: none Discharge Plan Discharge Disposition: STR/NH Stable for Discharge? Yes Anticipated Discharge (Day): today If Discharged Today/In 24 Hrs: W-10/discharge paper done, DC summary done, CMR done
[2017-07-21 13:48] VITALS: BP 120/80
[2017-07-21 17:10] VITALS: BP 120/80
== END 2017-07-21 19:20 | DRG 536 ==
LOC: DELPENDDIS → ERH 09:27 → 2NA 12:40 → ERHI 12:40 → 2NA 12:40 → ENRESERV 13:24 → ENTRNSPT 14:21 → EDTRNSPTSTS 14:26 → 2NA 14:34 → CMPTRNSPT 14:54 → ENPENDDIS 07-20 14:13 → 2NA 07-21 19:20
PROVIDERS: Internal Medicine; Physician Assistant
PROC: 3E0U3BZ Introduction of Anesthetic Agent into Joints, Percutaneous Approach (ICD-10-PCS; principal; 2017-07-20)
PROC: 3E0U33Z Introduction of Anti-inflammatory into Joints, Percutaneous Approach (ICD-10-PCS; principal; 2017-07-20)
DX: S32.592A Other specified fracture of left pubis, initial encounter for closed fracture (principal); C79.31 Secondary malignant neoplasm of brain; R56.9 Unspecified convulsions; F03.90 Unspecified dementia, unspecified severity, without behavioral disturbance, psychotic disturbance, mood disturbance, and anxiety; J44.9 Chronic obstructive pulmonary disease, unspecified; Z87.891 Personal history of nicotine dependence; Z85.118 Personal history of other malignant neoplasm of bronchus and lung; M19.90 Unspecified osteoarthritis, unspecified site; Z88.5 Allergy status to narcotic agent; Z88.8 Allergy status to other drugs, medicaments and biological substances; Z91.041 Radiographic dye allergy status; Z90.710 Acquired absence of both cervix and uterus; E89.0 Postprocedural hypothyroidism; Z91.81 History of falling; M16.12 Unilateral primary osteoarthritis, left hip; M81.0 Age-related osteoporosis without current pathological fracture
CPT/HCPCS: 2NASP; 36415; 82436; 93005; 93010; 96372; 97110-GO; 97116-GO; 97161-GP; J1030; J1644; J1650; J1953; J3490